=== PATIENT | female | born 1980 | race Caucasian/White ===

== ENCOUNTER 2020-12-23 11:06 | Emergency (ER) | payer MEDICAID ==
[~2020-12-23] VITALS: Ht 160 cm; Wt 104.5 kg
[2020-12-23 11:12] VITALS: BP 141/83
[2020-12-23] MEDS ORDERED: ALBUTEROL SULFATE HFA 90 MCG/PUFF 8 GM INHALER IH ONE ×2 (11:30→11:45)
[2020-12-23] MEDS ORDERED: PredniSONE 20 MG TABLET PO ONE (11:30)
[2020-12-23] MEDS ORDERED: ALBUTEROL SULFATE 2.5 MG/0.5 ML NEB SOLUTION NEB ONE (11:45)
[2020-12-23] MEDS ORDERED: IPRATROPIUM BROMIDE 0.5 MG/2.5 ML NEB SOLUTION NEB ONE (11:45)
== END 2020-12-23 12:50 | disposition home or self-care (01) ==
LOC: EMS 11:10
DX: J45.909 Unspecified asthma, uncomplicated (principal)
CPT/HCPCS: 71045; 94640; 99284; J7512; J3535; J7613